=== PATIENT | male | born 1970 | race African-American/Black ===

== ENCOUNTER 2017-10-01 06:01 | Emergency (ER) | payer BC ==
[2017-10-01] MEDS ORDERED: Sodium Chloride 0.9% 1,000 ML IV ONE (06:20)
[2017-10-01] MEDS ORDERED: Sodium Chloride 0.9% 10 ML Syringe FLUSH PRN (06:20)
[2017-10-01] MEDS ORDERED: Ketorolac 30 MG/ML SDV IVPUSH ONE (06:20)
[2017-10-01] MEDS ORDERED: Dicyclomine 10 MG Cap PO ONE (06:20)
[2017-10-01] MEDS ORDERED: Sodium Chloride 0.9% 2.5 ML Syringe FLUSH PRN (06:20)
--- NOTE | 2017-10-01 06:24 | EDM.PDOC ---
<Olga Tao - Last Filed: 10/01/17 06:52> ED HPI GENERAL MEDICAL PROBLEM - General Chief Complaint: Gastrointestinal Problem Stated Complaint: ABDOMINAL PAIN Time Seen by Provider: 10/01/17 06:06 - History of Present Illness INITIAL COMMENTS - FREE TEXT/NARRATIVE: HISTORY AND PHYSICAL: History of present illness: The patient is a 47-year-old male who presents with 3 days of crampy mid abdominal pain, periumbilical pain, which he describes as crampy and bloating associated with diarrhea which is watery/mushy. The stools are not black or bloody and he is not having fever or vomiting. He says that when he eats soon thereafter he gets the crampy abdominal pain and then he has to have diarrhea. He denies any new foods and no recent exotic travel. He did try 2 doses of Imodium which he said did not help but he is not taking any other medications. He states that he does not drink much caffeine and tries to hydrate. Denies any GI history and has never had any GI abdominal surgeries. The patient was seen in our emergency department August of last year with similar crampy abdominal pain Review of systems: As per history of present illness and below otherwise all systems reviewed and negative. Past medical history: As per history of present illness and as reviewed below otherwise noncontributory. Surgical history: As per history of present illness and as reviewed below otherwise noncontributory. Social history: No reported history of drug or alcohol abuse. Family history: As per history of present illness and as reviewed below otherwise noncontributory. Physical exam: Gen.: Well-developed overweight man is nontoxic and vital signs are noted by me. HEENT: Atraumatic, normocephalic, negative for conjunctival pallor or scleral icterus, mucous membranes tacky, throat clear, neck supple, nontender, trachea midline. Lungs: Clear to auscultation, breath sounds equal bilaterally, chest nontender. Heart: S1S2, regular rate and rhythm no overt murmurs Abdomen: Soft, nondistended, bowel sounds are slightly hyperactive but there is no tympany on percussion. There is very minimal periumbilical tenderness on deep palpation but the overall exam is very nontender with no rebound or guarding. Negative for masses or hepatosplenomegaly. Negative for costovertebral tenderness. Pelvis: Stable nontender. Genitourinary: Deferred. Rectal: Deferred. Extremities: Atraumatic, negative for cords or calf pain. Neurovascular unremarkable. Neuro: Awake, alert, oriented. Cranial nerves II through XII unremarkable. Cerebellum unremarkable. Motor and sensory unremarkable throughout. Exam nonfocal. Diagnostics: CBC CMP amylase lipase abdominal x-rays If patient produces a stool we will send for study Therapeutics: IV fluids Bentyl Toradol 0700: Case is endorsed to Dr. Ruiz will follow-up the remainder of the lab tests and the x-rays and disposition the patient pending those results. Impression: Crampy mid abdominal pain with diarrhea Definitive disposition and diagnosis as appropriate pending reevaluation and review of above. abdominal pain Pain Score (Numeric/FACES): 9 - Related Data Allergies Allergy/AdvReac Type Severity Reaction Status Date / Time No Known Allergies Allergy Verified 10/01/17 06:12 Home Meds: Home Meds . [No Known Home Meds] 10/01/17 [History] Past Medical History - Past Health History Medical/Surgical History: Denies Medical/Surgical History Social & Family History - Family History Family Medical History: Noncontributory - Tobacco Use Smoking Status *Q: Never Smoker Years of Tobacco use: 3 Packs/Tins Daily: 1 Second Hand Smoke Exposure: No - Caffeine Use Caffeine Use: Reports: Coffee, Energy Drinks, Soda - Alcohol Use Days Per Week of Alcohol Use: 0 - Recreational Drug Use Recreational Drug Use: No ED ROS GENERAL - Review of Systems Review Of Systems: ROS reveals no pertinent complaints other than HPI. ED EXAM, GENERAL - Physical Exam Exam: See Below (See dictation) Course - Vital Signs Last Recorded V/S: Last Vital Signs Temp 98.2 F 10/01/17 06:07 Pulse 83 10/01/17 06:07 Resp 17 10/01/17 06:07 BP 149/97 H 10/01/17 06:07 Pulse Ox 98 10/01/17 06:07 - Orders/Labs/Meds Orders: Active Orders 24 hr Category Date Time Status Communication Order [RC] STAT Care 10/01/17 06:19 Active Abdomen Series w Chest 1V [CR] Stat Exams 10/01/17 06:20 Taken Sodium Chloride 0.9% [Saline Flush] Med 10/01/17 06:20 Active 10 ml FLUSH ASDIRECTED PRN Sodium Chloride 0.9% [Saline Flush] Med 10/01/17 06:20 Active 2.5 ml FLUSH ASDIRECTED PRN Saline Lock Insert [OM.PC] Stat Oth 10/01/17 06:19 Ordered Medication Orders Sodium Chloride (Saline Flush) 10 ml FLUSH ASDIRECTED PRN PRN Reason: Keep Vein Open Last Admin: 10/01/17 06:16 Dose: 10 ml Sodium Chloride (Saline Flush) 2.5 ml FLUSH ASDIRECTED PRN PRN Reason: Keep Vein Open Last Admin: 10/01/17 06:15 Dose: 2.5 ml Labs: Laboratory Tests 10/01/17 10/01/17 Range/Units 06:16 06:16 WBC 5.79 (4.0-11.0) K/uL RBC 6.49 H (4.50-5.90) M/uL Hgb 16.0 (13.0-17.0) g/dL Hct 47.8 (38.0-50.0) % MCV 73.7 L (80.0-98.0) fL MCH 24.7 L (27.0-32.0) pg MCHC 33.5 (31.0-37.0) g/dL RDW Std Deviation 43.3 (28.0-62.0) fl RDW Coeff of Jose 16 H (11.0-15.0) % Plt Count 178 (150-400) K/uL Neut % (Auto) 48.1 (48.0-80.0) % Lymph % (Auto) 43.4 H (16.0-40.0) % [place] % (Auto) 7.1 (0.0-15.0) % Eos % (Auto) 0.9 (0.0-7.0) % Baso % (Auto) 0.5 (0.0-1.5) % Neut # (Auto) 2.8 (1.4-5.7) K/uL Lymph # (Auto) 2.5 H (0.6-2.4) K/uL [place] # (Auto) 0.4 (0.0-0.8) K/uL Eos # (Auto) 0.1 (0.0-0.7) K/uL Baso # (Auto) 0.0 (0.0-0.1) K/uL Nucleated RBC % 0.0 /100WBC Nucleated RBCs # 0 K/uL Sodium 138 (136-148) mmol/L Potassium 3.8 (3.5-5.1) mmol/L Chloride 102 (98-107) mmol/L Carbon Dioxide 27.5 (21.0-32.0) mmol/L BUN 5 L (7.0-18.0) mg/dL Creatinine 1.1 (0.8-1.3) mg/dL Est Cr Clr Drug Dosing 87.47 mL/min Estimated GFR (MDRD) > 60.0 ml/min Glucose 112 H (74-106) mg/dL Calcium 9.4 (8.5-10.1) mg/dL Total Bilirubin 0.4 (0.2-1.0) mg/dL AST 32 (15-37) IU/L ALT 46 (14-63) IU/L Alkaline Phosphatase 67 (46-116) U/L Total Protein 7.5 (6.4-8.2) g/dL Albumin 3.9 (3.4-5.0) g/dL Globulin 3.6 H (2.0-3.5) g/dL Albumin/Globulin Ratio 1.1 L (1.3-2.8) Amylase 44 (25-115) U/L Lipase 142 (73-393) U/L Meds: Medications Generic Name Dose Route Start Last Admin Trade Name Jenaroq PRN Reason Stop Dose Admin Sodium Chloride 10 ml 10/01/17 06:20 10/01/17 06:16 Saline Flush FLUSH 10 ml ASDIRECTED PRN Administration Keep Vein Open Sodium Chloride 2.5 ml 10/01/17 06:20 10/01/17 06:15 Saline Flush FLUSH 2.5 ml ASDIRECTED PRN Administration Keep Vein Open Discontinued Medications Generic Name Dose Route Start Last Admin Trade Name Freq PRN Reason Stop Dose Admin Dicyclomine HCl 20 mg 10/01/17 06:20 10/01/17 06:31 Bentyl PO 10/01/17 06:21 20 mg ONETIME ONE Administration Sodium Chloride 1,000 mls @ 999 mls/hr 10/01/17 06:20 10/01/17 06:29 Normal Saline IV 10/01/17 07:20 999 mls/hr STAT ONE Administration Ketorolac Tromethamine 30 mg 10/01/17 06:20 10/01/17 06:30 Toradol IVPUSH 10/01/17 06:21 30 mg ONETIME ONE Administration Departure - Departure Disposition: Home, Self-Care 01 Condition: Good Clinical Impression: Diarrhea, Abdominal pain - Discharge Information Referrals: PCP,None [Primary Care Provider] - Forms: ED Department Discharge Additional Instructions: The following information is given to patients seen in the emergency department who are being discharged to home. This information is to outline your options for follow-up care. We provide all patients seen in our emergency department with a follow-up referral. The need for follow-up, as well as the timing and circumstances, are variable depending upon the specifics of your emergency department visit. If you don't have a primary care physician on staff, we will provide you with a referral. We always advise you to contact your personal physician following an emergency department visit to inform them of the circumstance of the visit and for follow-up with them and/or the need for any referrals to a consulting specialist. The emergency department will also refer you to a specialist when appropriate. This referral assures that you have the opportunity for followup care with a specialist. All of these measure are taken in an effort to provide you with optimal care, which includes your followup. Under all circumstances we always encourage you to contact your private physician who remains a resource for coordinating your care. When calling for followup care, please make the office aware that this follow-up is from your recent emergency room visit. If for any reason you are refused follow-up, please contact the [facility] emergency department at and ask to speak to the emergency department charge nurse. [facility] Primary care- Internal Medicine and Family [address] [address] Push hydration and electrolyte solutions and eat a bland diet. Please use Bentyl as needed for cramping with the diarrhea and also use [id number] antidiarrheals as you choose. Please call and follow-up with one of our providers or your primary care physician in the next few days for further care and evaluation and return to ER as needed and as discussed <Maria Fernanda Ruiz - Last Filed: 10/01/17 08:08> ED HPI GENERAL MEDICAL PROBLEM - History of Present Illness INITIAL COMMENTS - FREE TEXT/NARRATIVE: X-ray shows no sign of acute disease. Departure - Departure Time of Disposition: 08:08
[2017-10-01 06:52] LABS: CHLORIDE,CL 102 mmol/L (98-107); SODIUM,NA 138 mmol/L (136-148)
[2017-10-01 08:28] VITALS: BP 116/69
--- NOTE | 2017-10-01 10:44 | CR ---
EXAM DATE: 10/01/17 PATIENT'S AGE: 47 Patient: ALYSSA SAUNDERS Facility: [place], [place] Site . Site : 1970 Study: XRay Abdomen [id number]/13/2018 7:21:19 AM Ordering Physician: Aislinn Espinoza Final Report: INDICATION: Pain. TECHNIQUE: PA chest and 5 views of the abdomen and pelvis. COMPARISON: Abdominal radiographs from 09/05/2016. FINDINGS: Mildly compromised examination due to suboptimal technique/under penetration on multiple images. Cardiac, mediastinal and hilar contours are within normal limits. Normal pulmonary vasculature. Lungs are grossly clear. No pleural fluid or pneumothorax. No appreciable free intraperitoneal air. No significantly dilated loops of bowel or air-fluid levels are seen to suggest obstruction. No acute bony abnormality. IMPRESSION: No radiographic signs of acute disease. Dictated by Janak Crabtree MD @ 10/01/2017 7:39:44 AM Dictated by: Janak Crabtree MD @ 10/01/2017 07:40:51 (Electronic Signature) Report Signed by Proxy. [facility]
== END 2017-10-01 08:25 | disposition home or self-care (01) ==
LOC: MW.ED 06:01
DX: R10.33 Periumbilical pain (principal); R19.7 Diarrhea, unspecified
CPT/HCPCS: 74022; 80053; 82150; 83690; 85025; 96360; 96372; 99284; A9270; J1885; J7040; 99283

== ENCOUNTER 2019-09-05 12:29 | Emergency (ER) | payer BC ==
[2019-09-05] MEDS ORDERED: Sodium Chloride 0.9% 10 ML SDV IV PRN (13:57)
[2019-09-05] MEDS ORDERED: Sodium Chloride 0.9% 2.5 ML Syringe FLUSH PRN (13:57)
[2019-09-05] MEDS ORDERED: Sodium Chloride 0.9% 10 ML Syringe FLUSH PRN (13:57)
--- NOTE | 2019-09-05 14:25 | CR ---
INDICATION: STROKE CODE- WATSON AND RIGHT LEG NUMBNESS FOR 2 DAYS INDICATION: Headache. Right leg numbness for 2 days. TECHNIQUE: Chest 1 view. COMPARISON: 05/20/2018. FINDINGS: Cardiovascular and mediastinum: Heart size and vasculature are normal in caliber and appearance. Mediastinum is within normal limits. Lungs and pleural space: Lungs are clear. No sign of infiltrate or mass. No sign of pleural effusion. No pneumothorax. Bones and soft tissues: No significant findings. IMPRESSION: Lungs are clear. Dictated by Moises Phipps MD @ 09/05/2019 2:23:11 PM Dictated by: Moises Phipps MD @ 09/05/2019 14:23:17 (Electronically Signed)
--- NOTE | 2019-09-05 14:27 | CT ---
Head CT double axial sections through the brain were obtained. Intravenous contrast was not utilized. Comparison: No previous intracranial imaging is available. Findings: Small and mostly chronic subdural hematoma is noted on the left side with thickness of approximately 7 mm. There is a minimal amount of acute blood being seen within this collection. Midline shift is seen by about 9 mm to the right side. Early subtentorial herniation is noted on the left side. No other abnormal parenchymal densities are seen. Bone window settings were reviewed which shows no acute calvarial abnormality. Mastoid sinuses are clear. Visualized paranasal sinuses are clear. Impression: 1. Small subdural hematoma on the left side which is mostly chronic with minimal amount of acute blood. This causes significant mass-effect with effacement of the sulci on the left side, midline shift and early subtentorial herniation. Referral for neurosurgical evaluation is recommended. 2. No additional abnormality is seen on noncontrast head CT exam. Diagnostic code #5 This report was dictated in [place] Standard Time
[2019-09-05] MEDS ORDERED: Labetalol 100 MG in Sodium Chloride 0.9% 80 ML IV SCH (14:45)
[2019-09-05] MEDS: Labetalol 100 MG/20 ML MDV IVPUSH ONE ×2 (14:48→14:52)
[2019-09-05 14:49] VITALS: BP 195/129; PULSE 84
[2019-09-05 14:57] LABS: BLOOD UREA NITROGEN,BUN 10 mg/dL (7.0-18.0); CARBON DIOXIDE,CO2 29.1 mmol/L (21.0-32.0); CHLORIDE,CL 105 mmol/L (98-107); GLUCOSE RANDOM 100 mg/dL (74-106); POTASSIUM,K 4.1 mmol/L (3.5-5.1); SODIUM,NA 142 mmol/L (136-148)
--- NOTE | 2019-09-05 15:11 | EDM.PDOC ---
ED HPI GENERAL MEDICAL PROBLEM - General Chief Complaint: Headache Stated Complaint: HEADACHE Time Seen by Provider: 09/05/19 14:10 Source of Information: Reports: Patient, Family - History of Present Illness INITIAL COMMENTS - FREE TEXT/NARRATIVE: Patient is accompanied by his cousin. He denies any prior medical history. He and his cousin stated 2 days ago, his right lower extremity became weak and now it drags when he tries to walk. Patient reports decreased sensation to the right lower extremity. He also reports a headache and speech slurring for 2 days, in addition to the right lower extremity weakness. No exacerbating or alleviating factors. Attempts have been constant since onset. Denies any past medical history. Not have a primary care doctor. Head Pain Score (Numeric/FACES): 9 - Related Data Allergies Allergy/AdvReac Type Severity Reaction Status Date / Time No Known Allergies Allergy Verified 09/05/19 13:45 Home Meds: Home Meds . [No Known Home Meds] 10/01/17 [History] Past Medical History - Past Health History Medical/Surgical History: Denies Medical/Surgical History - Infectious Disease History Infectious Disease History: Reports: None Social & Family History - Family History Family Medical History: Noncontributory - Tobacco Use Smoking Status *Q: Unknown Ever Smoked - Caffeine Use Caffeine Use: Reports: Coffee, Energy Drinks, Soda ED ROS GENERAL - Review of Systems Review Of Systems: See Below (ROS positive for WATSON, numbness, weakness. ROS neg for fever, chills, tremors, nausea, vomiting.) - Physical Exam Exam: See Below Text/Narrative:: general: alert, well appearing, no acute distress HEENT: Atraumatic, normocephalic, pupils reactive, negative for conjunctival pallor or scleral icterus, mucous membranes moist, throat clear, handling oral secretions well. Neck: supple, nontender, trachea midline. Lungs: Clear to auscultation, breath sounds equal bilaterally, chest nontender. Heart: S1S2, regular, negative for clicks, rubs, or JVD. Abdomen: Soft, nondistended, nontender. Negative for masses or hepatosplenomegaly. Negative for costovertebral tenderness. Pelvis: Stable nontender. Skin: warm, dry, good turgor. Musculoskeletal: soft compartments. Decr strength of RUE and RLE compared to LUE and LLE. Extremities: Atraumatic, negative for cords or calf pain. Neurovascular unremarkable. Neuro: Awake, alert, oriented. +left nasolabial fold weakness. Unable to look upwards with left eye. [place] Cranial nerves II through XII unremarkable.Has drift of RUE and RLE.Decr sensation of RLE compared to LLE. Course - Vital Signs Text/Narrative:: head CT: left sided SDH with shift ek bpm nsr LAD nl pr, qrs, qtc no acute st changes labs Cbc: nl Cmp: nl Trop: nl TSH: nl UA: pending Coags: nl INR/PTT: unremarkable 2:41pm Spoke with Dr. Jones. Advises to try to keep SBP around less than 150 and disastolic around 90. Says to make pt an ER to ER transfer. He will see pt in the ER. embossing machine operator advised that I dont have to talk to an additional attending; ER will accept the pt. 3:10pm BP 146/100; will hold labetalol.Discussed need for transfer with pt, who consented. 3:16pm Pt remains alert, no change in condition. Remains alert. Protecting airway well. Last Recorded V/S: Last Vital Signs Temp 98 F 09/05/19 13:48 Pulse 84 09/05/19 14:48 Resp 18 09/05/19 14:48 BP 195/129 H 09/05/19 14:48 Pulse Ox 94 L 09/05/19 14:48 - Orders/Labs/Meds Orders: Active Orders 24 hr Category Date Time Status Assess Neurological Status [RC] ASDIRECTED Care 09/05/19 13:58 Active Bedrest [RC] ASDIRECTED Care 09/05/19 13:58 Active Blood Glucose Check, Bedside [RC] ONETIME Care 09/05/19 13:57 Active Cardiac Monitoring [RC] . DIRECTED Care 09/05/19 13:58 Active EKG Documentation Completion [RC] STAT Care 09/05/19 13:58 Active Height and Weight [RC] UPON Care 09/05/19 13:58 Active Initiate Acute Stroke Protocol [RC] STAT Care 09/05/19 13:58 Active NIH Stroke Scale [RC] ASDIRECTED Care 09/05/19 13:58 Active Nursing Bedside Swallow Screen [RC] ASDIRECTED Care 09/05/19 13:58 Active Oxygen Therapy [RC] ASDIRECTED Care 09/05/19 13:58 Active Stroke Education, General [RC] Click to Edit Care 09/05/19 13:58 Active Vital Signs [RC] Q15M Care 09/05/19 13:58 Active UA RFX GONZALO AND CULT IF INDIC [URIN] Stat Lab 09/05/19 13:57 Ordered Labetalol [Normodyne] 100 mg Med 09/05/19 14:45 Active Sodium Chloride 0.9% [Normal Saline] 80 ml IV TITRATE Sodium Chloride 0.9% [Normal Saline] Med 09/05/19 13:57 Active 10 ml IV ASDIRECTED PRN Sodium Chloride 0.9% [Saline Flush] Med 09/05/19 13:57 Active 10 ml FLUSH ASDIRECTED PRN Sodium Chloride 0.9% [Saline Flush] Med 09/05/19 13:57 Active 2.5 ml FLUSH ASDIRECTED PRN Peripheral IV Insertion Adult [OM.PC] Stat Oth 09/05/19 13:58 Ordered Peripheral IV Insertion Adult [OM.PC] Stat Oth 09/05/19 13:58 Ordered Medication Orders Labetalol HCl 100 mg/ Sodium (Chloride) 100 mls @ 30 mls/hr IV TITRATE SHAHAB; Protocol Sodium Chloride (Saline Flush) 10 ml FLUSH ASDIRECTED PRN PRN Reason: Keep Vein Open Last Admin: 09/05/19 14:47 Dose: 10 ml Sodium Chloride (Saline Flush) 2.5 ml FLUSH ASDIRECTED PRN PRN Reason: Keep Vein Open Last Admin: 09/05/19 14:47 Dose: 2.5 ml Sodium Chloride (Normal Saline) 10 ml IV ASDIRECTED PRN PRN Reason: IV Use Labs: Laboratory Tests 09/05/19 09/05/19 09/05/19 Range/Units 14:15 14:15 14:15 WBC 6.59 (4.0-11.0) K/uL RBC 5.91 H (4.50-5.90) M/uL Hgb 14.4 (13.0-17.0) g/dL Hct 43.6 (38.0-50.0) % MCV 73.8 L (80.0-98.0) fL MCH 24.4 L (27.0-32.0) pg MCHC 33.0 (31.0-37.0) g/dL RDW Std Deviation 44.0 (28.0-62.0) fl RDW Coeff of Jose 16 H (11.0-15.0) % Plt Count 223 (150-400) K/uL MPV 10.80 (7.40-12.00) fL Neut % (Auto) 43.0 L (48.0-80.0) % Lymph % (Auto) 46.7 H (16.0-40.0) % [place] % (Auto) 7.7 (0.0-15.0) % Eos % (Auto) 2.1 (0.0-7.0) % Baso % (Auto) 0.5 (0.0-1.5) % Neut # (Auto) 2.8 (1.4-5.7) K/uL Lymph # (Auto) 3.1 H (0.6-2.4) K/uL [place] # (Auto) 0.5 (0.0-0.8) K/uL Eos # (Auto) 0.1 (0.0-0.7) K/uL Baso # (Auto) 0.0 (0.0-0.1) K/uL Nucleated RBC % 0.0 /100WBC Nucleated RBCs # 0 K/uL INR 1.02 APTT 28.3 (18.6-31.3) SEC Sodium 142 (136-148) mmol/L Potassium 4.1 (3.5-5.1) mmol/L Chloride 105 (98-107) mmol/L Carbon Dioxide 29.1 (21.0-32.0) mmol/L BUN 10 (7.0-18.0) mg/dL Creatinine 1.3 (0.8-1.3) mg/dL Est Cr Clr Drug Dosing 70.19 mL/min Estimated GFR (MDRD) > 60.0 ml/min Glucose 100 (74-106) mg/dL Calcium 9.9 (8.5-10.1) mg/dL Total Bilirubin 0.2 (0.2-1.0) mg/dL AST 26 (15-37) IU/L ALT 36 (14-63) IU/L Alkaline Phosphatase 67 (46-116) U/L Troponin I < 0.050 (0.000-0.056) ng/mL Total Protein 7.7 (6.4-8.2) g/dL Albumin 4.1 (3.4-5.0) g/dL Globulin 3.6 (2.6-4.0) g/dL Albumin/Globulin Ratio 1.1 (0.9-1.6) TSH 3rd Generation 0.63 (0.36-3.74) uIU/mL Meds: Medications Generic Name Dose Route Start Last Admin Trade Name Freq PRN Reason Stop Dose Admin Labetalol HCl 100 mg/ Sodium 100 mls @ 30 mls/hr 09/05/19 14:45 Chloride IV TITRATE SHAHAB Protocol 0.5 MG/MIN Sodium Chloride 10 ml 09/05/19 13:57 09/05/19 14:47 Saline Flush FLUSH 10 ml ASDIRECTED PRN Administration Keep Vein Open Sodium Chloride 2.5 ml 09/05/19 13:57 09/05/19 14:47 Saline Flush FLUSH 2.5 ml ASDIRECTED PRN Administration Keep Vein Open Sodium Chloride 10 ml 09/05/19 13:57 Normal Saline IV ASDIRECTED PRN IV Use Discontinued Medications Generic Name Dose Route Start Last Admin Trade Name Freq PRN Reason Stop Dose Admin Labetalol HCl 40 mg 09/05/19 14:31 09/05/19 14:52 Normodyne IVPUSH 09/05/19 14:32 40 mg ONETIME ONE Administration Protocol Departure - Departure Time of Disposition: 14:40 Disposition: DC/Tfer to Acute Hospital 02 Condition: Critical Clinical Impression: Stroke, Subdural hematoma - Discharge Information Referrals: PCP,None [Primary Care Provider] - Forms: ED Department Discharge Sepsis Event Note - Evaluation Sepsis Screening Result: No Definite Risk - Focused Exam Vital Signs: Vital Signs Temp Pulse Resp BP Pulse Ox 09/05/19 14:48 84 18 195/129 H 94 L 09/05/19 13:48 98 F 86 16 161/107 H 97 Date Exam was Performed: 09/05/19 Time Exam was Performed: :15 - My Orders Last 24 Hours: My Active Orders 09/05/19 14:45 Labetalol [Normodyne] 100 mg Sodium Chloride 0.9% [Normal Saline] 80 ml IV TITRATE - Assessment/Plan Last 24 Hours: My Active Orders 02/15/20 14:45 Labetalol [Normodyne] 100 mg Sodium Chloride 0.9% [Normal Saline] 80 ml IV TITRATE
== END 2019-09-05 15:25 ==
LOC: MW.ED 12:29
DX: I63.9 Cerebral infarction, unspecified (principal); I62.00 Nontraumatic subdural hemorrhage, unspecified
CPT/HCPCS: 36415; 70450; 71045; 80053; 84443; 84484; 85025; 85610; 85730; 93005; 96374; 99285; J3490

== ENCOUNTER 2020-02-10 10:14 | Emergency (ER) | payer BC ==
--- NOTE | 2020-02-10 10:43 | EDM.PDOC ---
ED HPI GENERAL MEDICAL PROBLEM - General Chief Complaint: Headache Stated Complaint: HEADACHE Time Seen by Provider: 02/10/20 10:31 Source of Information: Reports: Patient - History of Present Illness INITIAL COMMENTS - FREE TEXT/NARRATIVE: History of present illness: 49-year-old male presenting with headache for the last 3 days. No associated neurological type symptoms, no weakness or numbness, no difficulty walking or speaking. No neck pain or stiffness. No fever. He was concerned because in August 2019 he had a small subdural hematoma that had mass-effect and he had a craniotomy. he had been taking Tylenol for the last few days which has been controlling his pain well, however as the pain had been ongoing, he called his doctor who recommended he come to the emergency department to evaluate for rebleeding. Does not take anticoagulation Review of systems: As per history of present illness and below otherwise all systems reviewed and negative. Past medical history: As per history of present illness and as reviewed below otherwise noncontributory. Subdural hematoma Surgical history: As per history of present illness and as reviewed below otherwise noncontributory. Craniotomy Social history: No reported history of drug or alcohol abuse. No tobacco Family history: As per history of present illness and as reviewed below otherwise noncontributory. Physical exam: GEN: no acute distress, well appearing HEENT: Atraumatic, normocephalic, mucous membranes moist, healed craniotomy scar of the left side of his head. No facial or skull tenderness. Does have a slight left eyelid droop, which he reports is chronic, longstanding unchanged Neck: supple, nontender, trachea midline. Lungs: No respiratory distress. Heart: RRR Extremities: Atraumatic. Neurovascularly intact. Neuro: Awake, alert, oriented. Neuro Exam nonfocal. NIH = 0. Moves all extremities without difficulty. No ataxia, intact strength in all 4 extremities and intact rv detailer strength. Correct on month, year, and age. Skin: warm, dry, no lesions Diagnostics: [] Therapeutics: [] MDM: Impression: [] Plan: [] Definitive disposition and diagnosis as appropriate pending reevaluation and review of above. Headache Pain Score (Numeric/FACES): 9 - Related Data Allergies Allergy/AdvReac Type Severity Reaction Status Date / Time No Known Allergies Allergy Verified 02/10/20 10:33 Home Meds: Home Meds . [No Known Home Meds] 10/01/17 [History] Past Medical History - Past Health History Medical/Surgical History: Denies Medical/Surgical History HEENT History: Reports: None Cardiovascular History: Reports: None Respiratory History: Reports: None Gastrointestinal History: Reports: None Genitourinary History: Reports: None Musculoskeletal History: Reports: None Psychiatric History: Reports: None Endocrine/Metabolic History: Reports: None Hematologic History: Reports: None Immunologic History: Reports: None Oncologic (Cancer) History: Reports: None Dermatologic History: Reports: None - Infectious Disease History Infectious Disease History: Reports: None - Past Surgical History Head Surgeries/Procedures: Reports: None Other Neurological Surgeries/Procedures: subdrual bleed or clot about 4 months ago Social & Family History - Family History Family Medical History: Noncontributory - Tobacco Use Smoking Status *Q: Never Smoker Second Hand Smoke Exposure: No - Caffeine Use Caffeine Use: Reports: None - Recreational Drug Use Recreational Drug Use: No ED ROS GENERAL - Review of Systems Review Of Systems: See Below (See HPI) - Physical Exam Exam: See Below (See HPI) Course - Vital Signs Text/Narrative:: Mild headache, well controlled with Tylenol at home but with history of subdural hematoma and craniotomy. Will check CT brain. No signs of meningitis or intracranial infection. No signs of stroke. CT brain shows resolution of the subdural hematoma previously visualized. No new or acute abnormal findings. Last Recorded V/S: Last Vital Signs Temp 97.2 F 02/10/20 10:28 Pulse 93 02/10/20 11:50 Resp 17 02/10/20 11:50 BP 144/93 H 02/10/20 11:50 Pulse Ox 98 02/10/20 11:50 - Re-Assessments/Exams Free Text/Narrative Re-Assessment/Exam: 02/10/20 12:03 CT scan results and follow-up plan discussed with the patient. Continue Tylenol for pain control. Return to the ER if any neurological symptoms or worsening headache, or headache not controlled by Tylenol. Departure - Departure Time of Disposition: 12:04 Disposition: Home, Self-Care 01 Clinical Impression: Headache - Discharge Information Instructions: Form - Headache Record, General Headache Without Cause, Ea sy-to-Read, Pain Medicine Instructions, [id number] Referrals: [facility] [Primary Care Provider] - Forms: ED Department Discharge Additional Instructions: Continue Tylenol for pain control. Return to the ER if any neurological symptoms or worsening headache, or headache not controlled by Tylenol. Please call your neurosurgeon in [place] for a repeat visit/reevaluation. The following information is given to patients seen in the emergency department who are being discharged to home. This information is to outline your options for follow-up care. We provide all patients seen in our emergency department with a follow-up referral. The need for follow-up, as well as the timing and circumstances, are variable depending upon the specifics of your emergency department visit. If you don't have a primary care physician on staff, we will provide you with a referral. We always advise you to contact your personal physician following an emergency department visit to inform them of the circumstance of the visit and for follow-up with them and/or the need for any referrals to a consulting specialist. The emergency department will also refer you to a specialist when appropriate. This referral assures that you have the opportunity for follow-up care with a specialist. All of these measure are taken in an effort to provide you with optimal care, which includes your follow-up. Under all circumstances we always encourage you to contact your private physician who remains a resource for coordinating your care. When calling for follow-up care, please make the office aware that this follow-up is from your recent emergency room visit. If for any reason you are refused follow-up, please contact the [facility] Emergency Department at and asked to speak to the emergency department charge nurse. Sepsis Event Note (ED) - Evaluation Sepsis Screening Result: No Definite Risk - Focused Exam Vital Signs: Vital Signs Temp Pulse Resp BP Pulse Ox 02/10/20 11:50 93 17 144/93 H 98 02/10/20 10:28 97.2 F 94 18 146/97 H 98
--- NOTE | 2020-02-10 11:17 | CT ---
Head CT Technique: Multiple axial sections through the brain were obtained. Intravenous contrast was not utilized. Comparison: Previous head CT study of 09/05/19 is available. Findings: Previous subdural hematoma is no longer seen on the left side. Interval craniotomy is noted. Ventricles along with basal cisterns and sulci over the convexities are mildly prominent. No evidence of intracranial hemorrhage. No midline shift or mass-effect is seen. Bone window settings shows prior craniotomy. No acute calvarial finding is otherwise seen. Visualized mastoid sinuses and visualized paranasal sinuses show nothing acute. Impression: 1. Previous subdural hematoma is no longer seen. Left-sided craniotomy is noted. 2. No acute intracranial abnormality is appreciated. Diagnostic code #2 This report was dictated in MDT
[2020-02-10 11:50] VITALS: BP 144/93
[2020-02-10 12:20] VITALS: PULSE 81
== END 2020-02-10 12:20 | disposition home or self-care (01) ==
LOC: MW.ED 10:14
DX: R51 Headache (principal)
CPT/HCPCS: 70450; 70450-26; 99283; 99284-25

== ENCOUNTER 2024-07-23 09:56 | Emergency (ER) | payer BC ==
[2024-07-23 11:02] LABS: BASOPHILS ABSOLUTE AUTO 0.04 K/uL (0.00-0.20); BASOPHILS PERCENT AUTO 0.6 % (0.0-1.0); EOSINOPHILS ABSOLUTE AUTO 0.03 K/uL (0.00-0.45); EOSINOPHILS PERCENT AUTO 0.5 % (0.0-6.0); HEMATOCRIT 47.8 % (42.0-52.0); HEMOGLOBIN 15.7 g/dL (14.0-18.0); IMMATURE GRAN ABSOLUTE AUTO 0.02 K/uL (0.00-0.05); IMMATURE GRAN PERCENT AUTO 0.3 % (0.0-0.4); LYMPHOCYTES ABSOLUTE AUTO 1.33 K/uL (1.00-4.80); LYMPHOCYTES PERCENT AUTO 20.5 % (24.0-44.0); MEAN CORPUSCULAR HEMOGLOBIN 23.9 pg (28.0-32.0); MEAN CORPUSCULAR HGB CONC 32.8 g/dL (32.0-36.0); MEAN CORPUSCULAR VOLUME 72.8 fL (83.0-99.0); MEAN PLATELET VOLUME 9.8 fL (9.4-12.4); MONOCYTES ABSOLUTE AUTO 1.04 K/uL (0.00-0.80); NEUTROPHILS ABSOLUTE AUTO 4.02 K/uL (1.80-7.70); NEUTROPHILS PERCENT AUTO 62.1 % (41.0-71.0); PLATELET COUNT,PLT 182 K/uL (150-400); RED BLOOD CELL COUNT 6.57 M/uL (4.52-5.90); WHITE BLOOD CELL COUNT,WBC 6.48 K/uL (3.9-11.3)
[2024-07-23] MEDS: Prochlorperazine 10 MG/2 ML SDV IVPUSH ONE (11:09)
[2024-07-23] MEDS: Sodium Chloride 0.9% 1,000 ML IV ONE (11:09)
[2024-07-23] MEDS: diphenhydrAMINE 50 MG/ML SDV IVPUSH ONE (11:09)
[2024-07-23 11:27] LABS: CALCIUM 9.3 mg/dL (8.5-10.1); CARBON DIOXIDE,CO2 29.6 mmol/L (21.0-32.0); CREATININE 1.2 mg/dL (0.8-1.3); EST CRCL DRUG DOSING (CG) 74.08 mL/min; POTASSIUM,K 4.1 mmol/L (3.5-5.1)
[2024-07-23] MEDS: Iopamidol 755 MG/ML 500 ML Multipack Bottle IVPUSH STA (14:12)
[2024-07-23] MEDS ORDERED: Iopamidol 755 MG/ML 500 ML Multipack Bottle IVPUSH STA (15:29)
[2024-07-23 16:04] VITALS: BP 159/83; PULSE 89
== END 2024-07-23 16:04 | disposition home or self-care (01) ==
LOC: MW.ED 09:56
DX: U07.1 COVID-19 (principal); Z79.52 Long term (current) use of systemic steroids; Z75.8 Other problems related to medical facilities and other health care
CPT/HCPCS: 36415; 70496; 70498; 80048; 83605; 84484; 85025; 87428; 93005; 96361; 96374; 96375; 99284; J0780; J1200; J7030; Q9967